=== PATIENT | female | born 1990 | race Caucasian/White ===

== ENCOUNTER 2017-03-05 19:19 | Emergency (ER) | payer OTHER ==
[~2017-03-05] VITALS: Ht 165.1 cm; Wt 53.5 kg
[~2017-03-05 19:19] MED LIST: ACET500C5 PO; NITR-58 PO
[2017-03-05 19:38] VITALS: Ht 165.1 cm; Wt 53.5 kg
[2017-03-05] MEDS ORDERED: ACETAMINOPHEN 325 MG TAB PO STA (20:38)
[2017-03-05 20:41] LABS: URINE BLOOD (Dip) POC Negative (NEGATIVE)
[2017-03-05 21:10] LABS: ADD SCAN DIFF NO
[2017-03-05 21:14] LABS: BASOPHIL # 0.1 10^3/ul (0.0-0.1); BASOPHILS % 0.6 % (0.0-2.0); EOSINOPHILS # 0.1 10^3/ul (0.0-0.5); EOSINOPHILS % 1.6 % (0.0-7.0); HEMATOCRIT 39.6 % (37.0-47.0); HEMOGLOBIN 13.2 g/dl (12.0-16.0); LYMPHOCYTES # 2.8 10^3/ul (0.8-2.9); LYMPHOCYTES % 31.5 % (15.0-51.0); MEAN CORPUSCULAR HEMOGLOBIN 27.6 pg (29.0-33.0); MEAN CORPUSCULAR HGB CONC 33.3 g/dl (32.0-37.0); MEAN CORPUSCULAR VOLUME 82.7 fl (82.0-101.0); MEAN PLATELET VOLUME 10.6 fl (7.4-10.4); MONOCYTE # 0.7 10^3/ul (0.3-0.9); MONOCYTES % 7.8 % (0.0-11.0); NEUTROPHIL # 5.2 10^3/ul (1.6-7.5); NEUTROPHILS % 58.3 % (39.0-77.0); PLATELET COUNT 309 10^3/UL (140-415); RED BLOOD COUNT 4.79 10^6/ul (4.20-5.40); RED CELL DISTRIBUTION WIDTH 13.2 % (11.5-14.5)
[2017-03-05 21:17] LABS: ADD UMIC NO; UR ASCORBIC ACID NEGATIVE (NEGATIVE); UR BILIRUBIN (Dip) NEGATIVE (NEGATIVE); UR BLOOD (Dip) NEGATIVE (NEGATIVE); UR CLARITY CLEAR (CLEAR); UR COLOR YELLOW (YELLOW); UR GLUCOSE (Dip) NEGATIVE (NEGATIVE); UR KETONES (Dip) NEGATIVE (NEGATIVE); UR LEUKOCYTE ESTERASE (Dip) NEGATIVE Leu/ul (NEGATIVE); UR NITRITE (Dip) NEGATIVE (NEGATIVE); UR SPECIFIC GRAVITY (Dip) 1.025 (1.003-1.030); UR TOTAL PROTEIN (Dip) NEGATIVE (NEGATIVE); UR UROBILINOGEN (Dip) 1+ mg/dL (NEGATIVE)
--- NOTE | 2017-03-05 21:45 | RADRPT ---
PROCEDURE: Obstetrical ultrasound. CLINICAL INDICATION: Pelvic pain. TECHNIQUE: Multiple sonographic images of the pelvis were obtained with transabdominal and endova ginal technique. Images were obtained with crowell scale and color Doppler. COMPARISON: None. FINDINGS: The uterus is well visualized and measures 7.2 x 4.5 x 4.1 cm. No abnormal uterine mass is identifi ed. There is an intrauterine gestational sac with a yolk sac identified. No pole is identifi ed. The mean sac diameter averages 0.66 cm, compatible with 5 weeks and 2 days gestation. No subch orionic collection is identified. There is mild free fluid within the posterior cul-de-sac. The right ovary measures 4.9 x 3.1 x 4.5 cm and the left ovary measures 2.4 x 2.1 x 2.8 cm. There is normal flow to both ovaries. There is no suspicious adnexal mass identified. IMPRESSION: Intrauterine gestational sac with a yolk sac identified, compatible with 5 weeks and 2 days. No feta l pole is identified. Short-term follow-up ultrasound is recommended. Mild pelvic free fluid. .Clemente Alberto MD, MD Date Time Electronically viewed and signed by .Clemente Alberto MD, MD on 03/05/2017 21:44 .T/
[2017-03-05] MEDS ORDERED: ACET325T33 PO (22:15)
[2017-03-05 22:39] VITALS: BP 111/73; PULSE 83; RESP 16
--- NOTE | 2017-03-05 23:12 | ERD ---
ER Documentation Chief Complaint Date/Time DATE: 03/05/17 TIME: 23:04 Chief Complaint abd pain x 1 hour AUTOMATIC [employer]READ W[employer]ER HPI This is a 26-year-old female presenting to the emergency department for left pelvic pain 1 hour. Patient is currently 5 weeks with last menstrual period 01/29/2017. Patient states she took a home urine test 2 days ago and got positive result. Patient has not had pelvic ultrasound yet. Patient has not been seen by her LONG LINE TEAMSTER yet. Patient is a A2. Patient has history of 2 ectopic pregnancies and has had her right fallopian tube removed. Patient states she has intermittent left-sided pelvic pain and rates pain 7/10. Patient states pain feels sharp. Patient did not take any medications at home for this. Patient's LONG LINE TEAMSTER is at [facility]. ROS All systems reviewed and are negative except as per history of present illness. Medications Home Meds Active Scripts Acetaminophen* (Tylenol*) 325 Mg Tablet, 2 TAB PO Q6 Y for PAIN AND OR ELEVATED TEMP, #20 TAB Prov:NISHANT MARTINES NP 03/05/17 Nitrofurantoin Monohyd Macrocr* (Macrobid*) 100 Mg Capsr, 100 MG PO BID for 7 Days, CAP Prov:LAURA MORAES PA-C 04/22/16 Acetaminophen* (Tylophen*) 500 Mg Capsule, 1 CAP PO Q6H Y for PAIN AND OR ELEVATED TEMP, #30 CAP Prov:DIANA DYER PA-C 04/19/16 Allergies Allergies: Coded Allergies: No Known Drug Allergies (Verified Allergy, Unknown, 08/22/14) PMhx/Soc History of Surgery: No Anesthesia Reaction: No Hx Neurological Disorder: No Hx Respiratory Disorders: No Hx Cardiac Disorders: No Hx Psychiatric Problems: No Hx Miscellaneous Medical Probl: No Hx Alcohol Use: No Hx Substance Use: No Hx Tobacco Use: No Smoking Status: Never smoker Physical Exam Vitals Vital Signs Date Time Temp Pulse Resp B/P Pulse Ox O2 Delivery O2 Flow Rate FiO2 03/05/17 22:39 83 16 111/73 98 Room Air 03/05/17 19:38 97.5 97 18 126/76 96 Physical Exam Const: No acute distress, alert Head: Atraumatic Eyes: Normal Conjunctiva ENT: Normal External Ears, Nose and Mouth. Neck: Full range of motion..~ No meningismus. Resp: Clear to auscultation bilaterally Cardio: Regular rate and rhythm, no murmurs Abd: Soft, non tender, non distended. Normal bowel sounds. Skin: No petechiae or rashes Back: No midline or flank tenderness. No CVA tenderness Ext: No cyanosis, or edema Neur: Awake and alert Psych: Normal Mood and Affect Result Diagram: 03/05/172046 Results 24 hrs Laboratory Tests Test 03/05/17 20:37 03/05/17 20:45 03/05/17 20:47 Urine Color YELLOW Urine Clarity CLEAR Urine pH 7.0 Urine Specific [place] 1.025 Urine Ketones NEGATIVEmg/dL Urine Nitrite NEGATIVEmg/dL Urine Bilirubin NEGATIVEmg/dL Urine Urobilinogen 1+mg/dL Urine Leukocyte Esterase NEGATIVELeu/ul Urine Hemoglobin NEGATIVEmg/dL Urine Glucose NEGATIVEmg/dL Urine Total Protein NEGATIVEmg/dl Bedside Urine pH (LAB) 7.0 Bedside Urine Protein (LAB) Trace Bedside Urine Glucose (UA) Negative Bedside Urine Ketones (LAB) Negative Bedside Urine Blood Negative Bedside Urine Nitrite (LAB) Negative Bedside Urine Leukocyte Esterase (L Negative White Blood Count 9.010^3/ul Red Blood Count 4.7910^6/ul Hemoglobin 13.2g/dl Hematocrit 39.6% Mean Corpuscular Volume 82.7fl Mean Corpuscular Hemoglobin 27.6pg Mean Corpuscular Hemoglobin Concent 33.3g/dl Red Cell Distribution Width 13.2% Platelet Count 46526^3/UL Mean Platelet Volume 10.6fl Neutrophils % 58.3% Lymphocytes % 31.5% Monocytes % 7.8% Eosinophils % 1.6% Basophils % 0.6% Nucleated Red Blood Cells % 0.0/100WBC Neutrophils # 5.210^3/ul Lymphocytes # 2.810^3/ul Monocytes # 0.710^3/ul Eosinophils # 0.110^3/ul Basophils # 0.110^3/ul Nucleated Red Blood Cells # 0.010^3/ul Beta HCG, Quantitative 67903.0mIU/ml Current Medications Medications (Trade) Dose Ordered Sig/Wale Route PRN Reason Start Time Stop Time Status Last Admin Dose Admin Acetaminophen (Tylenol Tab) 650 mg ONCE STAT PO 03/05/17 20:38 03/05/17 20:40 DC 6/25/17 20:43 Procedures/MDM [facility] [address] [address] Radiology Main Line: [phone] DIAGNOSTIC IMAGING REPORT Patient: ERICKA PUENTE : 1990 Age: 26 Sex: F MR #: [id number] DOS: 03/05/178 Ordering MD: NISHANT MARTINES NP Location: [facility]TE Room/Bed: PROCEDURE: Obstetrical ultrasound. CLINICAL INDICATION: Pelvic pain. TECHNIQUE: Multiple sonographic images of the pelvis were obtained with transabdominal and endovaginal technique. Images were obtained with crowell scale and color Doppler. COMPARISON: None. FINDINGS: The uterus is well visualized and measures 7.2 x 4.5 x 4.1 cm. No abnormal uterine mass is identified. There is an intrauterine gestational sac with a yolk sac identified. No pole is identified. The mean sac diameter averages 0.66 cm, compatible with 5 weeks and 2 days gestation. No subchorionic collection is identified. There is mild free fluid within the posterior cul-de-sac. The right ovary measures 4.9 x 3.1 x 4.5 cm and the left ovary measures 2.4 x 2.1 x 2.8 cm. There is normal flow to both ovaries. There is no suspicious adnexal mass identified. IMPRESSION: Intrauterine gestational sac with a yolk sac identified, compatible with 5 weeks and 2 days. No pole is identified. Short-term follow-up ultrasound is recommended. Mild pelvic free fluid. MDM: This is a 26-year-old female with medical history of 2 ectopic pregnancies presenting to the emergency department for left-sided pelvic pain while . Patient's last menstrual period 01/29/2017 and patient is currently 5 weeks . Patient is a A2. Labs, urine and ultrasound ordered. CBC shows no significant anemia or infection. Beta hCG is 10,405.0. Urine is negative for infection. OB ultrasound reviewed by radiologist as intrauterine gestational sac with a yolk sac identified, compatible with 5 weeks and 2 days. No pole is identified. Short-term follow-up ultrasound is recommended. Mild pelvic free fluid. Consulted labor electronics repair technician, Dr. Bradshaw and discussed findings with him. We agree that patient is appropriate for outpatient management and needs close follow-up with her LONG LINE TEAMSTER or patient is to return to the ED for repeat ultrasound and lab work. Discussed findings with patient. Differential diagnosis includes but not limited to ectopic , threatened , missed , normal , subchorionic hemorrhage , ruptured ovarian cyst, UTI or pyelonephritis. Instructed patient to return in 2 days for repeat lab work and ultrasound. Patient is appropriate for outpatient management and will be given prescription for Tylenol.. Instructed patient to follow-up here in the ED in 2 days. Return to ED sooner for any high fever, chest pain, difficulty breathing, shortness breath, wheezing, vomiting, diarrhea, abdominal pain or any new or worsening symptoms. Patient verbalizes understanding. All questions answered at discharge. Departure Diagnosis: Primary Impression: Pelvic pain Condition: Stable Patient Instructions: : Your First Trimester Changes, , Established, Normal Symptoms Referrals: [facility] YOU HAVE RECEIVED A MEDICAL SCREENING EXAM AND THE RESULTS INDICATE THAT YOU DO NOT HAVE A CONDITION THAT REQUIRES URGENT TREATMENT IN THE EMERGENCY DEPARTMENT. FURTHER EVALUATION AND TREATMENT OF YOUR CONDITION CAN WAIT UNTIL YOU ARE SEEN IN YOUR DOCTORS OFFICE WITHIN THE NEXT 1-2 DAYS. IT IS YOUR RESPONSIBILITY TO MAKE AN APPOINTMENT FOR FOLOW-UP CARE. IF YOU HAVE A PRIMARY DOCTOR --you should call your primary doctor and schedule an appointment IF YOU DO NOT HAVE A PRIMARY DOCTOR YOU CAN CALL OUR PHYSICIAN REFERRAL HOTLINE AT IF YOU CAN NOT AFFORD TO SEE A PHYSICIAN YOU CAN CHOSE FROM THE FOLLOWING [facility] [address] [facility]. [facility] [address] [facility]. [facility] [address] [facility]. [facility] [address] [facility]. [facility] [address] [facility]. [facility]. [address] [facility]. [facility] YOU HAVE RECEIVED A MEDICAL SCREENING EXAM AND THE RESULTS INDICATE THAT YOU DO NOT HAVE A CONDITION THAT REQUIRES URGENT TREATMENT IN THE EMERGENCY DEPARTMENT. FURTHER EVALUATION AND TREATMENT OF YOUR CONDITION CAN WAIT UNTIL YOU ARE SEEN IN YOUR DOCTORS OFFICE WITHIN THE NEXT 1-2 DAYS. IT IS YOUR RESPONSIBILITY TO MAKE AN APPOINTMENT FOR FOLOW-UP CARE. IF YOU HAVE A PRIMARY DOCTOR --you should call your primary doctor and schedule and appointment IF YOU DO NOT HAVE A PRIMARY DOCTOR YOU CAN CALL OUR PHYSICIAN REFERRAL HOTLINE AT . IF YOU CAN NOT AFFORD TO SEE A PHYSICIAN YOU CAN CHOSE FROM THE FOLLOWING [facility] INSTITUTIONS: [facility] [address] [place] [address] [facility] [address] [place] [address] [facility] [address] [place] [address] LONG [place] [address] [facility] [address] [place] [address] OFFICE FAX , [facility] [address] [place] [address] [facility] [address] [place] [address] DR PETERSON [facility] [address] [facility], [address] [address] JEAN[address]PIERRE MARTINEZ [address] [place] [address] [facility] [address] [place] [address] [phone] [facility] [address] - LETICIA SIMS [address], [facility] [address] [address] [facility]. [address], [facility] [address] [address] [address] [place] [address] Additional Instructions: Call your primary care doctor TOMORROW for an appointment during the next 24-48 hours.See the doctor sooner or return here if your condition worsens before your appointment time. Return to ED for any high fever, chest pain, difficulty breathing, shortness breath, wheezing, vomiting, diarrhea, abdominal pain or any new or worsening symptoms. NISHANT MARTINES NP Mar 05, 2017 23:11
== END 2017-03-05 22:41 | disposition home or self-care (01) ==
LOC: FTE 19:19
DX: O26.891 Other specified pregnancy related conditions, first trimester (principal); R10.2 Pelvic and perineal pain; Z3A.01 Less than 8 weeks gestation of pregnancy
CPT/HCPCS: 76801; 76817; 81003; 84702; 85025; 86900; 86901; Z7502; Z7610

== ENCOUNTER 2017-03-06 17:13 | Emergency (ER) | payer OTHER ==
[~2017-03-06] VITALS: Ht 157.5 cm; Wt 53.5 kg
[~2017-03-06 17:13] MED LIST changes: +ACET325T33 PO
[2017-03-06 17:39] VITALS: Ht 157.5 cm; Wt 53.5 kg
--- NOTE | 2017-03-06 18:44 | ERD ---
ER Documentation Chief Complaint Date/Time DATE: 03/06/17 TIME: 18:39 Chief Complaint Patent here for a recheck lab values and ultrasound. HPI 26-year-old female patient with a past medical history of 2 ectopic pregnancies is a A2 presents to the ED complaining of left pelvic pain. Patient was seen here yesterday. Patient last menses was on January 29, 2017. Patient states that she thought she was told to come back today for repeat ultrasound and beta hCG. Patient reports that her pelvic pain has improved. Patient denies any vaginal bleeding, vaginal discharge, dysuria, urgency, frequency, nausea, vomiting, diarrhea. ROS All systems reviewed and are negative except as per history of present illness. Medications Home Meds Active Scripts Acetaminophen* (Tylenol*) 325 Mg Tablet, 2 TAB PO Q6 Y for PAIN AND OR ELEVATED TEMP, #20 TAB Prov:NISHANT MARTINES NP 03/05/17 Nitrofurantoin Monohyd Macrocr* (Macrobid*) 100 Mg Capsr, 100 MG PO BID for 7 Days, CAP Prov:LAURA MORAES PA-C 04/22/16 Acetaminophen* (Tylophen*) 500 Mg Capsule, 1 CAP PO Q6H Y for PAIN AND OR ELEVATED TEMP, #30 CAP Prov:DIANA DYER PA-C 04/19/16 Allergies Allergies: Coded Allergies: No Known Drug Allergies (Verified Allergy, Unknown, 08/22/14) PMhx/Soc Medical and Surgical Hx: pt denies Medical Hx, pt denies Surgical Hx History of Surgery: No Anesthesia Reaction: No Hx Neurological Disorder: No Hx Respiratory Disorders: No Hx Cardiac Disorders: No Hx Psychiatric Problems: No Hx Miscellaneous Medical Probl: No Hx Alcohol Use: No Hx Substance Use: No Hx Tobacco Use: No Physical Exam Vitals Vital Signs Date Time Temp Pulse Resp B/P Pulse Ox O2 Delivery O2 Flow Rate FiO2 03/06/17 17:39 98.4 81 20 120/74 100 Physical Exam Const: [id number]-rul-euhqgsgem, well-nourished. In no acute distress. Head: Atraumatic, normocephalic Eyes: Normal Conjunctiva without injection. No purulent discharge. ENT: Normal external ear, nose. Moist oropharynx without tonsillar exudates. Non -erythematous pharynx. Uvula midline. No drooling. No trismus. Neck: No cervical midline tenderness. Full range of motion. No meningismus. No cervical lymphadenopathy. No JVD. Resp: Clear to auscultation bilaterally. No wheezing, rhonchi, rales, or crackles. No accessory muscle use. No retractions. Cardio: Regular rate and rhythm. No murmurs, rubs or gallops. Abd: Soft, nontender, non distended. Normal bowel sounds. No palpable masses. No rebound tenderness. No guarding. Negative McBurney's point. Negative psoas sign. Negative obturator sign. Skin: No petechiae or rashes Back: No midline tenderness. No CVA tenderness. Ext: No cyanosis, or edema. Neur: Awake and alert. Normal gait. Normal coordination. Psych: Normal Mood and Affect Procedures/MDM This is a 26-year-old female patient with no significant past medical history presents to the ED for recheck of her beta hCG and ultrasound. Patient is afebrile and nontoxic-appearing. Patient has normal vital signs. Patient has resolved pelvic pain. It has been 1 day since patient's visit yesterday. Patient's beta hCG yesterday on March 05 2017 was 10,405. The ultrasound showed an intrauterine gestational sac with a yolk sac identified compatible with 5 weeks and 2 days. There is no pole noted. Therefore patient was instructed to follow-up with her ART HISTORIAN tomorrow for further evaluation and treatment. There is no indication to repeat the beta hCG or ultrasound today as patient's pain has resolved. There is an intrauterine gestational sac seen on ultrasound therefore ectopic suspicion is low. I however did instruct patient that if she experience any vaginal bleeding or worsening pelvic pain that she can return to the ED for further evaluation and treatment. Yesterday's urinalysis also showed negative leukocyte esterase, hematuria, nitrite. Low suspicion for urinary tract infection, pyelonephritis. Low suspicion for symptomatic anemia, ectopic , sepsis, PID, appendicitis, ovarian torsion, tubo-ovarian abscess, surgical abdomen, or other emergent conditions. Patient was educated that there is a risk for threatened . She already received a prescription for Tylenol yesterday. Patient to follow up with ART HISTORIAN in tomorrow for further evaluation and treatment. Patient is to return sooner to the ED for any worsening symptoms. Patient's questions were answered. Patient understood and agreed with discharge plan. This was discussed with my supervising physician Dr. Morales who agreed with the management and discharge plan. Departure Diagnosis: Primary Impression: Follow up Condition: Stable Patient Instructions: Abdominal Pain, Early Referrals: [facility] YOU HAVE RECEIVED A MEDICAL SCREENING EXAM AND THE RESULTS INDICATE THAT YOU DO NOT HAVE A CONDITION THAT REQUIRES URGENT TREATMENT IN THE EMERGENCY DEPARTMENT. FURTHER EVALUATION AND TREATMENT OF YOUR CONDITION CAN WAIT UNTIL YOU ARE SEEN IN YOUR DOCTORS OFFICE WITHIN THE NEXT 1-2 DAYS. IT IS YOUR RESPONSIBILITY TO MAKE AN APPOINTMENT FOR FOLOW-UP CARE. IF YOU HAVE A PRIMARY DOCTOR --you should call your primary doctor and schedule an appointment IF YOU DO NOT HAVE A PRIMARY DOCTOR YOU CAN CALL OUR PHYSICIAN REFERRAL HOTLINE AT IF YOU CAN NOT AFFORD TO SEE A PHYSICIAN YOU CAN CHOSE FROM THE FOLLOWING [facility] [address] [facility]. [facility] [address] [facility]. [facility] [address] [facility] [address] [facility] [address] [facility] [facility] [address] [facility] [facility]. [address] [facility] YOU HAVE RECEIVED A MEDICAL SCREENING EXAM AND THE RESULTS INDICATE THAT YOU DO NOT HAVE A CONDITION THAT REQUIRES URGENT TREATMENT IN THE EMERGENCY DEPARTMENT. FURTHER EVALUATION AND TREATMENT OF YOUR CONDITION CAN WAIT UNTIL YOU ARE SEEN IN YOUR DOCTORS OFFICE WITHIN THE NEXT 1-2 DAYS. IT IS YOUR RESPONSIBILITY TO MAKE AN APPOINTMENT FOR FOLOW-UP CARE. IF YOU HAVE A PRIMARY DOCTOR --you should call your primary doctor and schedule and appointment IF YOU DO NOT HAVE A PRIMARY DOCTOR YOU CAN CALL OUR PHYSICIAN REFERRAL HOTLINE AT . IF YOU CAN NOT AFFORD TO SEE A PHYSICIAN YOU CAN CHOSE FROM THE FOLLOWING [facility]: [facility] [address] [place] [address] [facility] [address] [place] [address] [facility] [address] [place] [address] [facility] URGENT CARE/SPECIALTIES ART HIST[place] [address] [facility] [address] [place] [address] OFFICE FAX , MICHELLE [address] [place] [address] [address] [address] [place] [address] DR PETERSON, [facility] [address], [address], [facility] [address] [address] SIDHU [facility] [address] [facility], [place] [address] [facility] [address] [place] [address] [facility] [address] - [address] JULIEN LETICIA [address], [facility] [address] [address] MERLOS, [address] [address] [facility]. [address], [place] [address] DR C[facility]TO [facility] [address] [place], [place] [id number] [facility] Hours: 8:00 am - 5:00 pm Additional Instructions: FOLLOW UP WITH YOUR ART HISTORIAN TOMORROW for further evaluation and treatment. Bring your ultrasound and blood work done here in the ED yesterday on March 05, 2017 to your appointment with your ART HISTORIAN. Return to this facility if you are not improving as expected - vaginal bleeding, worsening pelvic pain, fever, nausea, vomiting. CATHERINE UP PA-C Mar 06, 2017 18:44
== END 2017-03-06 18:39 | disposition home or self-care (01) ==
LOC: FTE 17:13
DX: Z00.00 Encounter for general adult medical examination without abnormal findings (principal)
CPT/HCPCS: 99282

== ENCOUNTER 2017-03-20 22:12 | Emergency (ER) | payer OTHER ==
[~2017-03-20] VITALS: Ht 165.1 cm; Wt 53.5 kg
[2017-03-20 22:20] VITALS: Ht 165.1 cm; Wt 53.5 kg
--- NOTE | 2017-03-21 00:59 | ERD ---
ER Documentation Chief Complaint Date/Time DATE: 03/21/17 TIME: 00:58 Chief Complaint low abd pain x 2 hours [employer], 7 weeks preg. +nausea HPI 36-year-old female sent to emergency department for complaints of pelvic pain abdominal pain for 2 hours prior to arrival. Patient discussed the pain as cramping pain, 4/10 scale, not better or worse with anything. Patient has history of ectopic pregnancies before, and just wants to make sure that the baby is normal. Patient had a ultrasound done 3 weeks ago, was told to have an intrauterine that is viable. Patient denies any vaginal bleeding. Patient denies hematuria or dysuria. Patient denies fever.. Patient denies any fever or chills. Patient is quite of nausea denies any vomiting. ROS All systems reviewed and are negative except as per history of present illness. Medications Home Meds Active Scripts Acetaminophen* (Tylenol*) 325 Mg Tablet, 2 TAB PO Q6 Y for PAIN AND OR ELEVATED TEMP, #20 TAB Prov:NISHANT MARTINES NP 03/05/17 Nitrofurantoin Monohyd Macrocr* (Macrobid*) 100 Mg Capsr, 100 MG PO BID for 7 Days, CAP Prov:LAURA MORAES PA-C 04/22/16 Acetaminophen* (Tylophen*) 500 Mg Capsule, 1 CAP PO Q6H Y for PAIN AND OR ELEVATED TEMP, #30 CAP Prov:DIANA DYER PA-C 04/19/16 Allergies Allergies: Coded Allergies: No Known Drug Allergies (Verified Allergy, Unknown, 08/22/14) PMhx/Soc History of Surgery: Yes (c section, ectopic ) Anesthesia Reaction: No Hx Neurological Disorder: No Hx Respiratory Disorders: No Hx Cardiac Disorders: No Hx Psychiatric Problems: No Hx Miscellaneous Medical Probl: No Hx Alcohol Use: No Hx Substance Use: No Hx Tobacco Use: No FmHx Family History: No coronary disease, No diabetes, No other Physical Exam Vitals Vital Signs Date Time Temp Pulse Resp B/P Pulse Ox O2 Delivery O2 Flow Rate FiO2 03/20/17 22:20 98.6 75 18 116/74 97 Physical Exam GENERAL: The patient is well developed and appropriate for usual state of health, in no apparent distress. CHEST: Clear to auscultation bilaterally. There are no rales, wheezes or rhonchi. HEART: Regular rate and rhythm. No murmurs, clicks, rubs or gallops. No S3 or S4. ABDOMEN: Soft, nontender and nondistended. Good bowel sounds. No rebound or guarding. No gross peritonitis. No gross organomegaly or masses. No Bergeron sign or McBurney point tenderness. BACK: No midline or flank tenderness. EXTREMITIES: Equal pulses bilaterally. There is no peripheral clubbing, cyanosis or edema. No focal swelling or erythema. Full range of motion. Grossly neurovascularly intact. NEURO: Alert and oriented. Cranial nerves 2-12 intact. Motor strength in all 4 extremities with 5/5 strength. Sensation grossly intact. Normal speech and gait. SKIN: There is no apparent rash or petechia. The skin is warm and dry. HEMATOLOGIC AND LYMPHATIC: There is no evidence of excessive bruising or lymphedema. No gross cervical, axillary, or inguinal lymphadenopathy. Result Diagram: 03/21/17 0045 Results 24 hrs Laboratory Tests Test 03/21/17 00:45 White Blood Count 9.210^3/ul Red Blood Count 4.5210^6/ul Hemoglobin 12.8g/dl Hematocrit 37.9% Mean Corpuscular Volume 83.8fl Mean Corpuscular Hemoglobin 28.3pg Mean Corpuscular Hemoglobin Concent 33.8g/dl Red Cell Distribution Width 14.0% Platelet Count 59330^3/UL Mean Platelet Volume 10.8fl Neutrophils % 66.5% Lymphocytes % 27.3% Monocytes % 5.2% Eosinophils % 0.5% Basophils % 0.2% Nucleated Red Blood Cells % 0.0/100WBC Neutrophils # 6.110^3/ul Lymphocytes # 2.510^3/ul Monocytes # 0.510^3/ul Eosinophils # 0.110^3/ul Basophils # 0.010^3/ul Nucleated Red Blood Cells # 0.010^3/ul Urine Color YELLOW Urine Clarity CLEAR Urine pH 6.0 Urine Specific Adrian 1.024 Urine Ketones TRACEmg/dL Urine Nitrite NEGATIVEmg/dL Urine Bilirubin NEGATIVEmg/dL Urine Urobilinogen NEGATIVEmg/dL Urine Leukocyte Esterase 1+Celeste/ul Urine Microscopic RBC 0/HPF Urine Microscopic WBC 1/HPF Urine Squamous Epithelial Cells FEW/HPF Urine Bacteria FEW/HPF Urine Mucus FEW/HPF Urine Hemoglobin NEGATIVEmg/dL Urine Glucose NEGATIVEmg/dL Urine Total Protein NEGATIVEmg/dl Beta HCG, Quantitative 72714.0mIU/ml PROCEDURE: US OB. CLINICAL INDICATION: , pain. TECHNIQUE: Multiple sonographic images of the pelvis were obtained. Transabdominal views of the pelvis are available for review. The images were reviewed on a PACS workstation. COMPARISON: No prior studies are available for comparison. FINDINGS: There is a single intrauterine . The mean gestational sac diameter measures 2.57 cm, corresponding to a 7 week 4 day . The crown-rump length equals 1.30 cm which corresponds to a 0-obna-5-day gestational age by ultrasound criteria. cardiac activity measures 164 bpm. No subchorionic hematoma is identified. The right ovary measures 4.1 x 2.5 x 2.6 cm. The left ovary measures 4.2 x 2.7 x 2.1 cm. Blood flow is demonstrated to both ovaries. The adnexa are unremarkable. There is no free pelvic fluid. IMPRESSION: 1. Single viable intrauterine gestation of approximately 7 weeks 4 days. 2. The estimated date of delivery is 11/03/2017. 3. Normal appearance of the ovaries. RPTAT: HTAR .Roland Barriga MD, MD Date Time Electronically viewed and signed by .Roland Barriga MD, on 03/21/2017 02:22 .R/ CC: BECKY REVELES [employer] Procedures/MDM Medical Decision Making: Patient's abdominal pain most likely consistent with urinary tract infection. Patient has a intrauterine which is viable at this time. There is low suspicion for abdominal emergencies at this time. Patients abdominal exam is normal at this time. Patients radiology exam does not show any abdominal emergencies at this time. There is low suspicion for appendicitis, cholecystitis, abdominal aortic aneurysms or peritonitis at this time. There is low suspicion for sepsis. Patient appears well and is hemodynamically stable. Disposition: Home. Condition: Stable Prescription Keflex, Tylenol Instructions: Patient is advised to take medications as prescribed. Patient is advised to rest, increase fluid intake and do good perineal hygiene. Patient is advised that if symptoms are worse, severe abdominal pain, uncontrolled vomiting , high fever, severe flank pain, worst signs and symptoms, to return to the emergency department immediately. Otherwise, patient can follow up with primary care doctor in 5-7 days. Departure Diagnosis: Primary Impression: UTI (urinary tract infection) Urinary tract infection type: acute cystitis Hematuria presence: without hematuria Qualified Code: N30.00 - Acute cystitis without hematuria Additional Impression: Intrauterine Condition: Stable Patient Instructions: Understanding Urinary Tract Infections (UTIs) Additional Instructions: atient is advised to take medications as prescribed. Patient is advised to rest , increase fluid intake and do good perineal hygiene. Patient is advised that if symptoms are worse, severe abdominal pain, uncontrolled vomiting, high fever , severe flank pain, worst signs and symptoms, to return to the emergency department immediately. Otherwise, patient can follow up with primary care doctor in 5-7 days. BECKY REVELES NP Mar 21, 2017 00:59
[2017-03-21 01:15] LABS: ADD SCAN DIFF NO
[2017-03-21 01:18] LABS: BASOPHILS % 0.2 % (0.0-2.0); EOSINOPHILS # 0.1 10^3/ul (0.0-0.5); EOSINOPHILS % 0.5 % (0.0-7.0); HEMATOCRIT 37.9 % (37.0-47.0); HEMOGLOBIN 12.8 g/dl (12.0-16.0); LYMPHOCYTES # 2.5 10^3/ul (0.8-2.9); LYMPHOCYTES % 27.3 % (15.0-51.0); MEAN CORPUSCULAR HEMOGLOBIN 28.3 pg (29.0-33.0); MEAN CORPUSCULAR HGB CONC 33.8 g/dl (32.0-37.0); MEAN CORPUSCULAR VOLUME 83.8 fl (82.0-101.0); MEAN PLATELET VOLUME 10.8 fl (7.4-10.4); MONOCYTE # 0.5 10^3/ul (0.3-0.9); MONOCYTES % 5.2 % (0.0-11.0); NEUTROPHIL # 6.1 10^3/ul (1.6-7.5); NEUTROPHILS % 66.5 % (39.0-77.0); PLATELET COUNT 250 10^3/UL (140-415); RED BLOOD COUNT 4.52 10^6/ul (4.20-5.40); WHITE BLOOD COUNT 9.2 10^3/ul (4.8-10.8)
[2017-03-21 01:21] LABS: ADD UMIC YES; UR ASCORBIC ACID NEGATIVE (NEGATIVE); UR BACTERIA FEW /HPF (NONE SEEN); UR BILIRUBIN (Dip) NEGATIVE (NEGATIVE); UR BLOOD (Dip) NEGATIVE (NEGATIVE); UR CLARITY CLEAR (CLEAR); UR COLOR YELLOW (YELLOW); UR GLUCOSE (Dip) NEGATIVE (NEGATIVE); UR KETONES (Dip) TRACE mg/dL (NEGATIVE); UR LEUKOCYTE ESTERASE (Dip) 1+ Leu/ul (NEGATIVE); UR MUCUS FEW /HPF (NONE SEEN); UR NITRITE (Dip) NEGATIVE (NEGATIVE); UR RBC 0 /HPF (0-5); UR SPECIFIC GRAVITY (Dip) 1.024 (1.003-1.030); UR SQUAMOUS EPITHELIAL CELL FEW /HPF (FEW); UR TOTAL PROTEIN (Dip) NEGATIVE (NEGATIVE); UR UROBILINOGEN (Dip) NEGATIVE (NEGATIVE)
--- NOTE | 2017-03-21 02:22 | RADRPT ---
PROCEDURE: US OB. CLINICAL INDICATION: , pain. TECHNIQUE: Multiple sonographic images of the pelvis were obtained. Transabdominal views of the p janna are available for review. The images were reviewed on a PACS workstation. COMPARISON: No prior studies are available for comparison. FINDINGS: There is a single intrauterine . The mean gestational sac diameter measures 2.57 cm, corres ponding to a 7 week 4 day . The crown-rump length equals 1.30 cm which corresponds to a 7- week-4-day gestational age by ultrasound criteria. cardiac activity measures 164 bpm. No sub chorionic hematoma is identified. The right ovary measures 4.1 x 2.5 x 2.6 cm. The left ovary measures 4.2 x 2.7 x 2.1 cm. Blood flow is demonstrated to both ovaries. The adnexa are unremarkable. There is no free pelvic fluid. IMPRESSION: 1. Single viable intrauterine gestation of approximately 7 weeks 4 days. 2. The estimated date of delivery is 11/03/2017. 3. Normal appearance of the ovaries. RPTAT: HTAR .Roland Barriga MD, MD Date Time Electronically viewed and signed by .Roland Barriga MD, on 03/21/2017 02:22 .R/
[2017-03-21] MEDS ORDERED: ACET500C5 PO (03:24)
[2017-03-21] MEDS ORDERED: CEPH-443 PO (03:24)
== END 2017-03-21 03:48 | disposition home or self-care (01) ==
LOC: FTE 22:12
DX: O23.41 Unspecified infection of urinary tract in pregnancy, first trimester (principal); R10.2 Pelvic and perineal pain; Z3A.01 Less than 8 weeks gestation of pregnancy
CPT/HCPCS: 36415; 76856; 81001; 84702; 85025; 86900; 86901; Z7502

== ENCOUNTER 2017-08-28 15:49 | Emergency (ER) | payer SELFPAY ==
[~2017-08-28] VITALS: Ht 162.6 cm; Wt 63.0 kg
[~2017-08-28 15:49] MED LIST changes: +CEPH-443 PO
[2017-08-28 16:14] VITALS: Ht 162.6 cm; Wt 63.0 kg
== END 2017-08-28 18:52 | disposition left against medical advice (07) ==
LOC: FTE 15:49
DX: Z53.21 Procedure and treatment not carried out due to patient leaving prior to being seen by health care provider (principal)

== ENCOUNTER 2017-10-30 10:01 | Inpatient (IN) | END 2017-11-02 15:40 | disposition home or self-care (01) | DRG 766 ==